=== PATIENT | female | born 1990 | race Caucasian/White ===

== ENCOUNTER 2019-02-11 12:54 | Emergency (ER) | payer BC ==
--- NOTE | 2019-02-11 14:51 | EDM.PDOC ---
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 Patient states she had a confirmation of and an ultrasound done last week which was too early to see a fetus in the uterus. Patient states that starting yesterday she began to have a small amount of vaginal bleeding. Patient states that today the bleeding has slightly increased but she is now having pain and cramping. Patient states she did pass a few small clots. Patient denies fever, chills, chest pain, shortness of breath, or cough. Denies headache, neck stiff ness, change in vision, syncope, or near syncope. Denies nausea, vomiting, diarrhea, constipation, or dysuria. Has not noted any blood in urine or stool. Patient has been eating and drinking appropriately. Patient denies any health history. Review of systems: As per history of present illness and below otherwise all systems reviewed and negative. Past medical history: As per history of present illness and as reviewed below otherwise noncontributory. Surgical history: As per history of present illness and as reviewed below otherwise noncontributory. Social history: See social history for further information Family history: As per history of present illness and as reviewed below otherwise noncontributory. Physical exam: General: Patient is alert, oriented, and in no acute distress. Patient sitting comfortably on exam table. HEENT: Atraumatic, normocephalic, pupils equal and reactive bilaterally, negative for conjunctival pallor or scleral icterus, mucous membranes moist, TMs normal bilaterally, throat clear, neck supple, nontender, trachea midline. No drooling or trismus noted. No meningeal signs. No hot potato voice noted. Lungs: Clear to auscultation, breath sounds equal bilaterally, chest nontender. Heart: S1S2, regular rate and rhythm without overt murmur Abdomen: Soft, nondistended, nontender. Negative for masses or hepatosplenomegaly. Negative for costovertebral tenderness. Pelvis: Stable nontender. Genitourinary: External genitalia within normal limits. There is a moderate amount of brown and bloody discharge in the vaginal vault. Cervical os is closed and negative cervical motion tenderness. Rectal: Deferred. Skin: Intact, warm, dry. No lesions or rashes noted. Extremities: Atraumatic, negative for cords or calf pain. Neurovascular unremarkable. Neuro: Awake, alert, oriented. Cranial nerves II through XII unremarkable. Cerebellum unremarkable. Motor and sensory unremarkable throughout. Exam nonfocal. Notes: On exam, patient does have bleeding in the vaginal vault. Will do labwork and imaging today. TVUS shows a single small intrauterine gestational sac with a pole. There is no cardiac activity identified at this time. This could represent an early gestation versus a missed . Follow-up with beta hCG and ultrasound if needed. An appointment was made for patient at [facility] for Monday for follow-up hCG levels. Discussed these results with patient. Discussed the importance of follow-up. Supportive care measures were reviewed and discussed. Voices understanding and is agreeable to plan of care. Denies any further questions or concerns at this time. Diagnostics: CBC, CMP, Rh blood typing, hCG urine, hCG quant, UA, transvaginal ultrasound Therapeutics: None Prescription: Metronidazole suppository Impression: Threatened Bacterial Vaginosis Plan: 1. Please start and/or continue to take your vitamin with folic acid once daily. 2. Pelvic rest until cleared by your OBGYN (no tampons, sex, etc...) 3. Tylenol as needed for pain management. This is safe to use in . 4. 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 Return to the ED as needed and as discussed. Definitive disposition and diagnosis as appropriate pending reevaluation and review of above. Abdomen Pain Score (Numeric/FACES): 5 - Related Data Allergies Allergy/AdvReac Type Severity Reaction Status Date / Time No Known Allergies Allergy Verified 02/11/19 13:18 Home Meds: Home Meds Pnv No.95/Ferrous Fum/Folic AC [ Caplet] 1 tab PO DAILY 02/11/19 [ History] Past Medical History - Infectious Disease History Infectious Disease History: Reports: Chicken Pox - Past Surgical History HEENT Surgical History: Reports: Oral Surgery Other HEENT Surgeries/Procedures: wisdom teeth Social & Family History - Family History Family Medical History: Noncontributory - Tobacco Use Smoking Status *Q: Never Smoker - Caffeine Use Caffeine Use: Reports: Coffee - Recreational Drug Use Recreational Drug Use: No ED ROS GENERAL - Review of Systems Review Of Systems: ROS reveals no pertinent complaints other than HPI. ED EXAM - Physical Exam Exam: See Below (see dictation) Course - Vital Signs Last Recorded V/S: Last Vital Signs Temp 37.1 C 02/11/19 13:20 Pulse 78 02/11/19 13:20 Resp 16 02/11/19 13:20 BP 142/72 H 02/11/19 13:20 Pulse Ox 100 02/11/19 13:20 - Orders/Labs/Meds Orders: Active Orders 24 hr Category Date Time Status CHLAMYDIA AND GONORRHEA BY TMA Stat Lab 02/11/19 14:36 Received CULTURE URINE [RM] Stat Lab 02/11/19 14:46 Ordered Labs: Laboratory Tests 02/11/19 02/11/19 02/11/19 Range/Units 13:39 13:39 13:57 WBC 5.97 (4.0-11.0) K/uL RBC 4.75 (4.30-5.90) M/uL Hgb 14.2 (12.0-16.0) g/dL Hct 41.5 (36.0-46.0) % MCV 87.4 (80.0-98.0) fL MCH 29.9 (27.0-32.0) pg MCHC 34.2 (31.0-37.0) g/dL RDW Std Deviation 41.2 (28.0-62.0) fl RDW Coeff of Joseline 13 (11.0-15.0) % Plt Count 234 (150-400) K/uL MPV 9.40 (7.40-12.00) fL Neut % (Auto) 63.2 (48.0-80.0) % Lymph % (Auto) 26.5 (16.0-40.0) % Jenkins % (Auto) 8.0 (0.0-15.0) % Eos % (Auto) 2.0 (0.0-7.0) % Baso % (Auto) 0.3 (0.0-1.5) % Neut # (Auto) 3.8 (1.4-5.7) K/uL Lymph # (Auto) 1.6 (0.6-2.4) K/uL Jenkins # (Auto) 0.5 (0.0-0.8) K/uL Eos # (Auto) 0.1 (0.0-0.7) K/uL Baso # (Auto) 0.0 (0.0-0.1) K/uL Nucleated RBC % 0.0 /100WBC Nucleated RBCs # 0 K/uL Sodium (136-145) mmol/L Potassium (3.5-5.1) mmol/L Chloride (98-107) mmol/L Carbon Dioxide (21.0-32.0) mmol/L BUN (7.0-18.0) mg/dL Creatinine (0.6-1.0) mg/dL Est Cr Clr Drug Dosing mL/min Estimated GFR (MDRD) ml/min Glucose (74-106) mg/dL Calcium (8.5-10.1) mg/dL Total Bilirubin (0.2-1.0) mg/dL AST (15-37) IU/L ALT (14-63) IU/L Alkaline Phosphatase (46-116) U/L Total Protein (6.4-8.2) g/dL Albumin (3.4-5.0) g/dL Globulin (2.6-4.0) g/dL Albumin/Globulin Ratio (0.9-1.6) HCG, Quant mIU/mL Urine Color YELLOW Urine Appearance CLEAR Urine pH 6.0 (5.0-8.0) Ur Specific [place] <= 1.005 (1.001-1.035) Urine Protein NEGATIVE (NEGATIVE) mg/dL Urine Glucose (UA) NEGATIVE (NEGATIVE) mg/dL Urine Ketones NEGATIVE (NEGATIVE) mg/dL Urine Occult Blood TRACE-INTACT H (NEGATIVE) Urine Nitrite NEGATIVE (NEGATIVE) Urine Bilirubin NEGATIVE (NEGATIVE) Urine Urobilinogen 0.2 (<2.0) EU/dL Ur Leukocyte Esterase NEGATIVE (NEGATIVE) Urine RBC 1-2 (0-2/HPF) Urine WBC NONE SEEN (0-5/HPF) Ur Epithelial Cells RARE (NONE-FEW) Urine Bacteria RARE (NEGATIVE) Urine HCG, Qual POSITIVE (NEGATIVE) Yael species DNA (NEGATIVE) Gardnerella DNA Probe (NEGATIVE) Trichomonas DNA Probe (NEGATIVE) Blood Type 04/08/19 04/08/19 04/08/19 Range/Units 13:57 13:57 14:36 WBC (4.0-11.0) K/uL RBC (4.30-5.90) M/uL Hgb (12.0-16.0) g/dL Hct (36.0-46.0) % MCV (80.0-98.0) fL MCH (27.0-32.0) pg MCHC (31.0-37.0) g/dL RDW Std Deviation (28.0-62.0) fl RDW Coeff of Joseline (11.0-15.0) % Plt Count (150-400) K/uL MPV (7.40-12.00) fL Neut % (Auto) (48.0-80.0) % Lymph % (Auto) (16.0-40.0) % Jenkins % (Auto) (0.0-15.0) % Eos % (Auto) (0.0-7.0) % Baso % (Auto) (0.0-1.5) % Neut # (Auto) (1.4-5.7) K/uL Lymph # (Auto) (0.6-2.4) K/uL Jenkins # (Auto) (0.0-0.8) K/uL Eos # (Auto) (0.0-0.7) K/uL Baso # (Auto) (0.0-0.1) K/uL Nucleated RBC % /100WBC Nucleated RBCs # K/uL Sodium 141 (136-145) mmol/L Potassium 3.9 (3.5-5.1) mmol/L Chloride 105 (98-107) mmol/L Carbon Dioxide 25.6 (21.0-32.0) mmol/L BUN 9 (7.0-18.0) mg/dL Creatinine 0.7 (0.6-1.0) mg/dL Est Cr Clr Drug Dosing 118.54 mL/min Estimated GFR (MDRD) > 60.0 ml/min Glucose 75 (74-106) mg/dL Calcium 9.0 (8.5-10.1) mg/dL Total Bilirubin 0.7 (0.2-1.0) mg/dL AST 12 L (15-37) IU/L ALT 24 (14-63) IU/L Alkaline Phosphatase 55 (46-116) U/L Total Protein 7.8 (6.4-8.2) g/dL Albumin 3.7 (3.4-5.0) g/dL Globulin 4.1 H (2.6-4.0) g/dL Albumin/Globulin Ratio 0.9 (0.9-1.6) HCG, Quant 08056.0 mIU/mL Urine Color Urine Appearance Urine pH (5.0-8.0) Ur Specific [place] (1.001-1.035) Urine Protein (NEGATIVE) mg/dL Urine Glucose (UA) (NEGATIVE) mg/dL Urine Ketones (NEGATIVE) mg/dL Urine Occult Blood (NEGATIVE) Urine Nitrite (NEGATIVE) Urine Bilirubin (NEGATIVE) Urine Urobilinogen (<2.0) EU/dL Ur Leukocyte Esterase (NEGATIVE) Urine RBC (0-2/HPF) Urine WBC (0-5/HPF) Ur Epithelial Cells (NONE-FEW) Urine Bacteria (NEGATIVE) Urine HCG, Qual (NEGATIVE) Yael species DNA NEGATIVE (NEGATIVE) Gardnerella DNA Probe POSITIVE H (NEGATIVE) Trichomonas DNA Probe NEGATIVE (NEGATIVE) Blood Type B POSITIVE Departure - Departure Time of Disposition: 16:22 Disposition: Home, Self-Care 01 Clinical Impression: Threatened in early , Bacterial vaginosis - Discharge Information Instructions: Vaginal Bleeding During , First Trimester, Bacterial Vaginosis, [id number] Referrals: PCP,Unknown [Primary Care Provider] - Forms: ED Department Discharge Additional Instructions: You have an appointment at [facility] on Monday, 08/2019 at 3:45pm for a follow up regarding your beta-HCG level. Please arrive 15 minutes prior to scheduled appointment time. - My Orders Last 24 Hours: My Active Orders 02/11/19 14:36 CHLAMYDIA AND GONORRHEA BY TMA Stat 02/11/19 14:46 CULTURE URINE [RM] Stat - Assessment/Plan Last 24 Hours: My Active Orders 02/11/19 14:36 CHLAMYDIA AND GONORRHEA BY TMA Stat 02/11/19 14:46 CULTURE URINE [RM] Stat
[2019-02-11 15:01] LABS: CHLORIDE,CL 105 mmol/L (98-107); SODIUM,NA 141 mmol/L (136-145)
--- NOTE | 2019-02-11 15:59 | US ---
EXAMINATION: Transvaginal obstetric ultrasound HISTORY: Bleeding COMPARISON: None TECHNIQUE: Grayscale, color Doppler, and spectral Doppler imaging obtained. FINDINGS: There is a single intrauterine gestational sac identified. Mean sac diameter measures 1.92 cm and the crown-rump length measures 0.4 cm. No definitive yolk sac or cardiac activity. This gives an estimated gestational age at 6 weeks and 4 days and estimated date of delivery at 10/03/2019. Both the left and right ovaries are normal in size, contour, and echogenicity. Normal color and spectral Doppler flow bilaterally. No free pelvic fluid. IMPRESSION: 1. Single small intrauterine gestational sac with a pole. There is no cardiac activity identified at this time. This could represent an early gestation versus a missed . Follow-up with beta-hCG and/or ultrasound if needed.
== END 2019-02-11 16:38 | disposition home or self-care (01) ==
LOC: MW.ED 12:54
DX: O20.0 Threatened abortion (principal); O23.591 Infection of other part of genital tract in pregnancy, first trimester; B96.89 Other specified bacterial agents as the cause of diseases classified elsewhere; Z3A.01 Less than 8 weeks gestation of pregnancy
CPT/HCPCS: 36415; 76801; 76801-26; 80053; 81001; 81025; 84702; 85025; 86900; 86901; 87086; 87480; 87491; 87510; 87591; 87660; 99284-25

== ENCOUNTER 2019-02-16 08:42 | Emergency (ER) | payer BC ==
[2019-02-16] MEDS ORDERED: Sodium Chloride 0.9% 1,000 ML IV ONE (08:58)
--- NOTE | 2019-02-16 08:58 | EDM.PDOC ---
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 Benoit [place] is passed a lot of tissue and has passed some blood clots she seems very anxious she is in no distress no fever nausea vomiting diarrhea constipation chest pain shortness breath headache dizziness palpitation no bowel or urine symptoms ] Review of systems: As per history of present illness and below otherwise all systems reviewed and negative. Past medical history: As per history of present illness and as reviewed below otherwise noncontributory. Surgical history: As per history of present illness and as reviewed below otherwise noncontributory. Social history: No reported history of drug or alcohol abuse. Family history: As per history of present illness and as reviewed below otherwise noncontributory. Physical exam: HEENT: Atraumatic, normocephalic, pupils reactive, negative for conjunctival pallor or scleral icterus, mucous membranes moist, throat clear, neck supple, nontender, trachea midline. Lungs: Clear to auscultation, breath sounds equal bilaterally, chest nontender. Heart: S1S2, regular, negative for clicks, rubs, or JVD. Abdomen: Soft, nondistended, nontender. Negative for masses or hepatosplenomegaly. Negative for costovertebral tenderness. Pelvis: Stable nontender. Genitourinary: External vaginal exam within normal limits internal exam there are some blood clots present in the vaginal vault cervix is fingertip closing to nearly closed no mass scarred lesion no products of conception Rectal: Deferred. Extremities: Atraumatic, negative for cords or calf pain. Neurovascular unremarkable. Neuro: Awake, alert, oriented. Cranial nerves II through XII unremarkable. Cerebellum unremarkable. Motor and sensory unremarkable throughout. Exam nonfocal. Diagnostics: [CBC CMP UA hCG Quant ABO type ] Therapeutics: [Her feeding 2 mg IV Zofran 8 mg IV Patient discussed with Dr. Benoit in detail, follow-up as scheduled next week ] Impression: [ complete Rh+ ] Definitive disposition and diagnosis as appropriate pending reevaluation and review of above. - Related Data Allergies Allergy/AdvReac Type Severity Reaction Status Date / Time No Known Allergies Allergy Verified 02/16/19 09:19 Home Meds: Home Meds Pnv No.95/Ferrous Fum/Folic AC [ Caplet] 1 tab PO DAILY 02/11/19 [ History] Past Medical History - Infectious Disease History Infectious Disease History: Reports: Chicken Pox - Past Surgical History HEENT Surgical History: Reports: Oral Surgery Other HEENT Surgeries/Procedures: wisdom teeth Social & Family History - Family History Family Medical History: Noncontributory - Caffeine Use Caffeine Use: Reports: Coffee ED ROS GENERAL - Review of Systems Review Of Systems: See Below ED EXAM, GENERAL - Physical Exam Exam: See Below Course - Vital Signs Last Recorded V/S: Last Vital Signs Temp 96.1 F 02/16/19 08:45 Pulse 60 02/16/19 12:51 Resp 14 02/16/19 12:51 BP 101/61 02/16/19 12:51 Pulse Ox 99 02/16/19 12:51 - Orders/Labs/Meds Orders: Active Orders 24 hr Category Date Time Status UA RFX ISSAC AND CULT IF INDIC [URIN] Stat Lab 02/16/19 08:58 Ordered Labs: Laboratory Tests 02/16/19 02/16/19 02/16/19 Range/Units 09:11 09:11 09:11 WBC 6.39 (4.0-11.0) K/uL RBC 4.41 (4.30-5.90) M/uL Hgb 12.9 (12.0-16.0) g/dL Hct 38.6 (36.0-46.0) % MCV 87.5 (80.0-98.0) fL MCH 29.3 (27.0-32.0) pg MCHC 33.4 (31.0-37.0) g/dL RDW Std Deviation 41.6 (28.0-62.0) fl RDW Coeff of Joseline 13 (11.0-15.0) % Plt Count 223 (150-400) K/uL MPV 9.40 (7.40-12.00) fL Neut % (Auto) 64.6 (48.0-80.0) % Lymph % (Auto) 27.2 (16.0-40.0) % Andrews % (Auto) 5.9 (0.0-15.0) % Eos % (Auto) 2.0 (0.0-7.0) % Baso % (Auto) 0.3 (0.0-1.5) % Neut # (Auto) 4.1 (1.4-5.7) K/uL Lymph # (Auto) 1.7 (0.6-2.4) K/uL Andrews # (Auto) 0.4 (0.0-0.8) K/uL Eos # (Auto) 0.1 (0.0-0.7) K/uL Baso # (Auto) 0.0 (0.0-0.1) K/uL Nucleated RBC % 0.0 /100WBC Nucleated RBCs # 0 K/uL Sodium 138 (136-145) mmol/L Potassium 4.1 (3.5-5.1) mmol/L Chloride 105 (98-107) mmol/L Carbon Dioxide 23.3 (21.0-32.0) mmol/L BUN 9 (7.0-18.0) mg/dL Creatinine 0.8 (0.6-1.0) mg/dL Est Cr Clr Drug Dosing 103.73 mL/min Estimated GFR (MDRD) > 60.0 ml/min Glucose 112 H (74-106) mg/dL Calcium 8.6 (8.5-10.1) mg/dL Total Bilirubin 0.7 (0.2-1.0) mg/dL AST 13 L (15-37) IU/L ALT 13 L (14-63) IU/L Alkaline Phosphatase 47 (46-116) U/L Total Protein 6.8 (6.4-8.2) g/dL Albumin 3.3 L (3.4-5.0) g/dL Globulin 3.5 (2.6-4.0) g/dL Albumin/Globulin Ratio 0.9 (0.9-1.6) HCG, Quant 17410.0 mIU/mL Blood Type B POSITIVE Meds: Medications Discontinued Medications Generic Name Dose Route Start Last Admin Trade Name Freq PRN Reason Stop Dose Admin Sodium Chloride 1,000 mls @ 999 mls/hr 02/16/19 08:58 02/16/19 09:09 Normal Saline IV 02/16/19 09:58 999 mls/hr STAT ONE Administration Morphine Sulfate 2 mg 02/16/19 11:54 02/16/19 12:06 Morphine IVPUSH 02/16/19 11:55 2 mg ONETIME ONE Administration Ondansetron HCl 8 mg 02/16/19 11:54 02/16/19 12:06 Zofran IVPUSH 02/16/19 11:55 8 mg ONETIME ONE Administration Departure - Departure Time of Disposition: 13:00 Disposition: Home, Self-Care 01 Condition: Good Clinical Impression: Complete - Discharge Information Referrals: PCP,Unknown [Primary Care Provider] - Forms: ED Department Discharge Additional Instructions: The following information is given to patients seen in the emergency department who are being discharged to home. This information is to outline your options for follow-up care. We provide all patients seen in our emergency department with a follow-up referral. The need for follow-up, as well as the timing and circumstances, are variable depending upon the specifics of your emergency department visit. If you don't have a primary care physician on staff, we will provide you with a referral. We always advise you to contact your personal physician following an emergency department visit to inform them of the circumstance of the visit and for follow-up with them and/or the need for any referrals to a consulting specialist. The emergency department will also refer you to a specialist when appropriate. This referral assures that you have the opportunity for follow-up care with a specialist. All of these measure are taken in an effort to provide you with optimal care, which includes your follow-up. Under all circumstances we always encourage you to contact your private physician who remains a resource for coordinating your care. When calling for follow-up care, please make the office aware that this follow-up is from your recent emergency room visit. If for any reason you are refused follow-up, please contact the [facility] emergency department at and asked to speak to the emergency department charge nurse. - My Orders Last 24 Hours: My Active Orders 02/16/19 08:58 UA RFX ISSAC AND CULT IF INDIC [URIN] Stat - Assessment/Plan Last 24 Hours: My Active Orders 02/16/19 08:58 UA RFX ISSAC AND CULT IF INDIC [URIN] Stat
[2019-02-16] MEDS ORDERED: Tetracaine HCl/PF 0.5% 4 ML Bottle EYEBOTH ONE (09:02)
[2019-02-16 10:05] LABS: CHLORIDE,CL 105 mmol/L (98-107); SODIUM,NA 138 mmol/L (136-145)
--- NOTE | 2019-02-16 11:32 | US ---
HISTORY: Vaginal bleeding and pelvic pain. Miscarriage. Methotrexate. TECHNIQUE: First trimester obstetric ultrasound with transvaginal imaging. COMPARISON: 02/11/2019. FINDINGS: Uterus measures 8.9 x 5.4 x 3.7 cm in size. Endometrial stripe thickness is 17 mm. No intrauterine is seen. There is some heterogeneous material within the endometrial region which could relate to hemorrhage versus residual products of conception. - Right ovary measures 3.6 x 2.4 x 2.1 cm in size. 1.4 cm corpus luteum likely present within the right ovary. Blood flow detected within the right ovary without findings of torsion. Left ovary measures 3.5 x 1.4 x 1.7 cm in size and appears normal. Normal blood flow is detected within left ovary without findings of torsion. No significant pelvic free fluid. IMPRESSION: 1. No intrauterine seen. 2. Heterogeneous appearance of the endometrial region may relate to hemorrhage or residual products of conception. 3. Probable small corpus luteum within the right ovary. No ovarian torsion. Dictated by Marko Ruvalcaba MD @ 02/16/2019 11:30:35 AM Dictated by: Marko Rvualcaba MD @ 02/16/2019 11:30:40 (Electronically Signed)
[2019-02-16] MEDS ORDERED: Ondansetron 4 MG/2 ML SDV IVPUSH ONE (11:54)
[2019-02-16] MEDS ORDERED: Morphine 2 MG/ML Syringe IVPUSH ONE (11:54)
== END 2019-02-16 15:04 | disposition home or self-care (01) ==
LOC: MW.ED 08:42
DX: O03.9 Complete or unspecified spontaneous abortion without complication (principal)
CPT/HCPCS: 36415; 76801; 80053; 84702; 85018; 85025; 86900; 86901; J2270; J2405; J7040; 96361; 96374; 96375; 99283; 99284-25

== ENCOUNTER 2019-03-05 09:05 | Day surgery (SDC) | payer BC ==
[~2019-03-05 09:05] MED LIST: Lactated Ringers 1,000 ML IV SCH
[2019-03-05] MEDS ORDERED: ceFAZolin 2 GM in Premix Bag 1 BAG IV ONE (09:34)
--- NOTE | 2019-03-05 09:34 | PCM.PREANE ---
Preanesthetic Assessment - Anesthesia/Transfusion/Family Hx Anesthesia History: Prior Anesthesia Without Reaction (Dental office) Family History of Anesthesia Reaction: No Transfusion History: No Prior Transfusion(s) - Review of Systems General: No Symptoms Pulmonary: No Symptoms Cardiovascular: No Symptoms Gastrointestinal: No Symptoms Neurological: No Symptoms Other: Reports: None - Physical Assessment NPO Status Date: 03/04/19 NPO Status Time: 22:00 Height: 5 ft 8 in Weight: 86.183 kg ASA Class: 2 Mental Status: Alert & Oriented x3 Airway Class: Mallampati = 2 Dentition: Reports: Normal Dentition Thyro-Mental Finger Breadths: 3 Mouth Opening Finger Breadths: 3 ROM/Head Extension: Full Lungs: Clear to Auscultation, Normal Respiratory Effort Cardiovascular: Regular Rate, Regular Rhythm - Allergies Allergies/Adverse Reactions: Allergies Allergy/AdvReac Type Severity Reaction Status Date / Time No Known Allergies Allergy Verified 03/04/19 17:27 - Acknowledgements Anesthesia Type Planned: General Anesthesia Pt an Appropriate Candidate for the Planned Anesthesia: Yes Alternatives and Risks of Anesthesia Discussed w Pt/Guardian: Yes Pt/Guardian Understands and Agrees with Anesthesia Plan: Yes PreAnesthesia Questionnaire - Past Health History Medical/Surgical History: Denies Medical/Surgical History HEENT History: Reports: Other (See Below) Other HEENT History: 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
[2019-03-05] MEDS ORDERED: Midazolam 1 MG/ML 2 ML SDV ONE (10:42)
[2019-03-05] MEDS ORDERED: fentaNYL 100 MCG/2 ML SDV ONE ×2 (10:43→11:34)
[2019-03-05] MEDS ORDERED: Propofol 200 MG/20 ML SDV ONE (10:44)
[2019-03-05] MEDS ORDERED: Ondansetron 4 MG/2 ML SDV ONE ×4 (11:08→11:17)
[2019-03-05] MEDS ORDERED: ceFAZolin 1 GM Vial ONE (11:08)
[2019-03-05] MEDS ORDERED: Ketorolac 30 MG/ML SDV ONE (11:17)
--- NOTE | 2019-03-05 11:32 | PCM.OPNOTE ---
- General Post-Op/Procedure Note Date of Surgery/Procedure: 03/05/19 Operative Procedure(s): suction dilatation and curettage Findings: 7 weeks size uterus, slightly retroverted, scant tissue obtained. Pre Op Diagnosis: incomplete spontaneous Post-Op Diagnosis: Same Anesthesia Technique: General LMA Primary Surgeon: Radha Leger Anesthesia Provider: Joel Mancuso Help Desk Supervisor: Ridge Smith Pathology: products of conception Fluid Replacement, Intraop: 1,000 EBL in mLs: 10 Complications: None Known Condition: Good
[2019-03-05] MEDS ORDERED: EPINEPHrine 1 MG/1 ML Amp IVPUSH PRN (11:33)
[2019-03-05] MEDS ORDERED: Albuterol 0.083% 2.5 MG/3 ML Neb Soln NEB PRN (11:33)
[2019-03-05] MEDS ORDERED: fentaNYL 100 MCG/2 ML SDV IVPUSH PRN (11:33)
[2019-03-05] MEDS ORDERED: 50% Dextrose in Water 50 ML Syringe IVPUSH PRN (11:33)
[2019-03-05] MEDS ORDERED: Atropine 1 MG/ML SDV IVPUSH PRN ×2 (11:33)
[2019-03-05] MEDS ORDERED: Naloxone 0.4 MG/ML Syringe IVPUSH PRN (11:33)
--- NOTE | 2019-03-05 11:55 | PCM.POSTAN ---
POST ANESTHESIA ASSESSMENT - MENTAL STATUS Mental Status: Alert, Oriented - VITAL SIGNS Pulse Rate: 67 SaO2: 99 Resp Rate: 10 Blood Pressure: 130/73 - RESPIRATORY Respiratory Status: Respiratory Rate WNL, Airway Patent, O2 Saturation Stable - CARDIOVASCULAR CV Status: Pulse Rate WNL, Blood Pressure Stable - GASTROINTESTINAL GI Status: No Symptoms - PAIN Pain Score: 2 - POST OP HYDRATION Hydration Status: Adequate & Stable
--- NOTE | 2019-03-05 12:37 | PCM48HPAN ---
Post Anesthesia Note - EVALUATION WITHIN 48HRS OF ANESTHETIC Vital Signs in Normal Range: Yes Patient Participated in Evaluation: Yes Respiratory Function Stable: Yes Airway Patent: Yes Cardiovascular Function Stable: Yes Hydration Status Stable: Yes Pain Control Satisfactory: Yes Nausea and Vomiting Control Satisfactory: Yes Mental Status Recovered: Yes Pulse Rate: 67 SaO2: 98 Resp Rate: 10 Blood Pressure: 130/73
--- NOTE | 2019-03-05 12:45 | OR ---
SURGEON: Radha Leger M.D. DATE OF PROCEDURE: 03/05/2019 PREOPERATIVE DIAGNOSIS: Incomplete spontaneous with retained products of conception. POSTOPERATIVE DIAGNOSIS: Incomplete spontaneous with retained products of conception. PROCEDURE: Suction dilatation and curettage. ANESTHESIA: General LMA. ESTIMATED BLOOD LOSS: 10 mL. FINDINGS: Uterus midposition to slightly anteverted, seven-week size, very scant amount of tissue obtained. COMPLICATIONS: None known. DISPOSITION: Stable to recovery. BRIEF HISTORY: This is a 28-year-old female. She initially presented with findings of a spontaneous in clinic, and was treated with Cytotec. She subsequently had a vasovagal episode at home and was transferred to the emergency room where she was hemodynamically stable. She had a short interval followup in the clinic with findings of products of conception at the cervical oxygen saturation, which were removed and sent to pathology and confirmed placental tissue. Ultrasound immediately following the extraction of this tissue showed a small amount of retained products of conception. They were actually heading out of town for a holiday and declined any further intervention at that time. They returned a week later for a followup ultrasound. There was still thickened heterogeneous endometrium with increased flow suggestive of retained products of conception, thickness of which was 7 mm; and therefore, I did recommend proceeding with suction dilatation and curettage to confirm that all the tissue had been removed. The risks were discussed including bleeding, infection, injury to the surrounding organs, uterine perforation, Asherman syndrome, and risk of anesthesia. Understanding all these risks, she does desire to proceed. DESCRIPTION OF PROCEDURE: With the patient in dorsal lithotomy position, under adequate LMA analgesia, the perineum and vagina were prepped with Betadine and draped in usual fashion for vaginal surgery. The bladder was drained with a red Guadarrama catheter. SCDs were in place, and she was given 2 g of Ancef IV due to the prolonged episode of resolution of this miscarriage, and after an appropriate time-out was held, bimanual examination was performed with findings as noted above. A bivalve speculum was placed in the vagina. The posterior lip of the cervix was grasped with an Allis clamp and the cervix was sounded to 8 cm and was then easily dilated to an 8 mm Hegar dilator. The 8 mm suction curette was placed to the uterine fundus and retracted multiple times with a continuous turning motion with a very small amount of tissue obtained. The suction curette was then cleansed with saline to collect any tissue that had been obtained. Sharp curettage was then performed at the 12, 3, 6, and 9 o'clock position. Additionally, with this, there was a tiny amount of tissue obtained and this was also sent to pathology. Repeat curettage showed good uterine cry on all surfaces. Repeat suction was performed with no further tissue obtained. There was minimal bleeding. All the instruments were removed from the vagina. Bimanual examination revealed a firm, slightly retroverted, seven-week size uterus with no active bleeding. Final sponge, needle, and instrument counts were reported as correct. There were no known complications. The patient was transferred to recovery in good condition. MAURO QUIÑONES /[id number]
== END 2019-03-05 13:40 | disposition home or self-care (01) ==
LOC: MW.SDS 09:05
PROVIDERS: ATTEND Obstetrics & Gynecology
DX: O03.4 Incomplete spontaneous abortion without complication (principal); N85.00 Endometrial hyperplasia, unspecified; Z3A.01 Less than 8 weeks gestation of pregnancy
CPT/HCPCS: 36415; 59812; 85027; 88305; J0690; J1885; J2250; J2405; J2704; J3010; J7120